=== PATIENT | male | born 1995 | race Caucasian/White ===

== ENCOUNTER 2023-06-25 21:41 | Emergency (ER) | payer MEDICAID, SELFPAY ==
[2023-06-25 21:46] VITALS: BP 110/68; PULSE 98; O2SAT 100
[2023-06-25 21:57] VITALS: BP 108/64; PULSE 84; RESP 18; TEMP 37.1; O2SAT 99; BMI 21.8
[2023-06-25 22:36] LABS: IDNOW Serial# 08D9AD1C; Strep A Nucleic Acid Negative (Negative)
[2023-06-25 22:40] LABS: COVID-19 Test Negative (Negative); IDNOW Serial# 58CA691E
[2023-06-25 22:42] LABS: IDNOW Serial# 9DB6401D; Influenza A Negative (Negative); Influenza B2 Negative (Negative)
--- NOTE | 2023-06-26 07:34 | ED_ITS ---
HPI - General Adult General Chief complaint: General Medical Stated complaint: Headache x3 days Time Seen by Provider: 06/26/23 07:31 Source: patient Mode of arrival: ambulatory Limitations: no limitations History of Present Illness HPI narrative: 27 yo male with PMH of opiate use disorder on suboxone notes sore throat x 3 days with mild headache, runny nose and cough he denies travel, no change in voice able to eat and drink. He is not very forthcoming with history. He is here with is partner sleeping all night in waiting room then in bed. MD complaint: sore throat Onset (ago): day(s) (3) Location: head and mouth Radiation: non-radiation Severity: mild Quality: aching Pain Consistency: constant Relieving factors: none Exacerbating factors: other (swallowing) Associated symptoms: cough and headaches Treatments prior to arrival: none Related Data Allergies Allergy/AdvReac Type Severity Reaction Status Date / Time No Known Allergies Allergy Verified 06/25/23 22:01 Review of Systems Review of Systems: Constitutional : no Fever, no Chills ENT/Mouth : positive sore throat, positive runny nose Eyes: No Discharge Cardiovascular : No Chest Pain, No SOB Respiratory : pos Cough, No Sputum Gastrointestinal : No Nausea, No Vomiting, No Diarrhea Genitourinary : No Dysuria, No Urinary Frequency Musculoskeletal : no Myalgia Skin : No rash Neuro : pos Headache PMFSH Past Medical History Attestation statement: The following information was validated with the patient. Source: old records reviewed Medical History Opiate use Social History Social History (Updated 06/26/23 @ 07:39 by Hamida Bernstein DO) Patient Tobacco Use Status: Tobacco use Unknown Physical Exam ED Vital Signs: Vital Signs - 24 hr 06/25/23 21:57 Temperature 98.8 F Pulse Rate 84 Respiratory Rate 18 Blood Pressure 108/64 Pulse Oximetry 99 Oxygen Delivery Method Room Air BMI result Body Mass Index 21.8 Appearance: Alert. Oriented X3. No acute distress. Sleeping had to be woken up Eyes: Pupils equal, round and reactive to light. ENT: Pharynx mild erythema no exudates, normal voice no drooling, runny nose, intermittent dry cough Neck: Normal inspection. Neck supple. normal ROM CVS: Normal heart rate and rhythm. Pulses normal. Respiratory: No respiratory distress. Breath sounds normal. Abdomen: Soft and nontender. Skin: Skin warm and dry. Normal skin color. Normal skin turgor. Extremities: No lower extremity edema. Neuro: Oriented X 3. No motor deficit. No sensory deficit. Medical Decision Making Medical Decision Making [facility] Narrative: 27 yo male with opiate use disorder here with viral like illness at this time no hypoxia not toxic, slept all night his throat at this time is not impressive will need swabs and encourage fluids and supportive care. Stable for DC. no signs of [employer]/deeper space infection Differential Diagnosis Differential Diagnoses: The differential diagnosis associated with the presentation includes viral syndrome, strep throat unlikely given constellation of symptoms but will test Admission/Observation Consideration of admission/observation: Escalation of care including admission/observation considered VS stable, not toxic stable for DC Lab Data [facility] Lab Attestation statement: I reviewed the patient's lab results. Labs: Lab Results 06/25/23 Range/Units 22:16 COVID-19 (ERIK) Negative (Negative) COVID-19 Clin Com See Note Influenza Type A (RUFUS) Negative (Negative) Influenza Type B (RUFUS) Negative (Negative) Influenza A & B Note See Note S. pyogenes GrpA RUFUS Negative (Negative) Prescription Management I considered prescription management with: Antibiotic Discharge Plan Discharge Clinical Impression: Viral pharyngitis Patient Disposition: Home, Self-Care Instructions: Pharyngitis (ED) Additional Instructions: take tylenol motrin for pain flu covid and strep negative return for worsening symptoms, inability to swallow, drooling confusion high fevers or any other concerns. Interventions: LWBS Worksheet Last Done: 06/26/23 02:02
== END 2023-06-26 07:55 | disposition home or self-care (01) ==
PROVIDERS: Emergency Medicine; Emergency Provider Emergency Medicine
DX: J02.9 Acute pharyngitis, unspecified (principal); Z11.52 Encounter for screening for COVID-19
CPT/HCPCS: 87502; 87635; 87651; 99282; 99283